=== PATIENT | female | born 2005 | race Caucasian/White ===

== ENCOUNTER 2025-01-15 18:33 | Emergency (ER) | payer BC ==
[~2025-01-15] VITALS: Ht 175.3 cm; Wt 77.1 kg
[2025-01-15 19:15] LABS: BASOPHILS # (AUTO) 0.1 K/UL (0.0-0.2); BASOPHILS % (AUTO) 1.4 % (0.0-2.0); EOSINOPHILS # (AUTO) 0.6 K/uL (0.0-0.7); EOSINOPHILS % (AUTO) 6.9 % (0.0-7.0); HEMATOCRIT 43.3 % (31.2-41.9); HEMOGLOBIN 14.6 g/dL (10.9-14.3); LYMPHOCYTES # (AUTO) 3.1 K/uL (0.8-4.8); LYMPHOCYTES % (AUTO) 35.7 % (20.5-74.5); MEAN CORPUSCULAR HEMOGLOBIN 30.5 uug (24.7-32.8); MEAN CORPUSCULAR HGB CONC 34 g/dL (32.3-35.6); MONOCYTES # (AUTO) 0.6 K/uL (0.1-1.30); MONOCYTES % (AUTO) 7.1 % (0-11); NEUTROPHILS # (AUTO) 4.3 K/uL (1.8-8.9); NEUTROPHILS % (AUTO) 48.9 % (31.5-64.5); PLATELET COUNT (AUTO) 168 K/uL (179-408); RED BLOOD CELL COUNT(AUTO) 4.81 MIL/uL (3.63-4.92); RED CELL DISTRIBUTION WIDTH 12.9 % (12.3-17.7); WHITE BLOOD COUNT (AUTO) 8.7 K/uL (3.8-11.8)
[2025-01-15 19:17] LABS: DIFFERENTIAL COMMENT 1
[2025-01-15 19:19] LABS: CARBON DIOXIDE 25 mmol/L (21-32); CHLORIDE 104 mmol/L (98-107); CREATININE 0.9 mg/dL (0.6-1.3); GLUCOSE 93 mg/dL (74-106); SODIUM SERUM 143 mmol/L (136-145); UREA NITROGEN, BLOOD 16 mg/dL (7-18)
[2025-01-15 19:19] LABS: *BILIRUBIN,URIN NEGATIVE (NEGATIVE); *BLOOD, URINE NEGATIVE (NEGATIVE); *CLARITY,URINE CLEAR (CLEAR); *COLOR,URINE YELLOW (YELLOW); *KETONES,URINE NEGATIVE (NEGATIVE); *PROTEIN,URINE NEGATIVE (NEGATIVE); *UROBILINOGEN,URINE 0.2 E.U./dl (NORMAL); LEUKOCYTE ESTERASE ,URINE 1+ (NEGATIVE); NITRITE, URINE NEGATIVE (NEGATIVE); PH,URINE 6.5 (5.0-8.0); UGLUCOSE NEGATIVE (NEGATIVE)
[2025-01-15 19:22] LABS: *URINE HCG, QUAL NEGATIVE (NEGATIVE)
[2025-01-15 19:24] LABS: BACTERIA,URINE MODERATE /HPF (NONE SEEN); RBC,URINE 0-3 /HPF (0-3)
[2025-01-15 19:25] LABS: ALANINE AMINOTRANSFERASE 27 U/L (14-59); ALBUMIN 4.2 g/dL (3.4-5.0); ALKALINE PHOSPHATASE 49 U/L (50-136); ASPARTATE AMINOTRANSFERASE 20 U/L (15-37); BILIRUBIN,DIRECT < 0.1 mg/dL (0.0-0.2); BILIRUBIN,TOTAL 0.3 mg/dL (0.2-1.0); TOTAL PROTEIN, SERUM 8.2 g/dL (6.4-8.2)
[2025-01-15 19:25] LABS: SQUAMOUS EPITHELIAL CELL,UR MODERATE /HPF (NONE SEEN)
[2025-01-15] MEDS ORDERED: SULF1TAB48 PO (20:06)
[2025-01-15] MEDS ORDERED: FAMO-132 PO (20:06)
[2025-01-15] MEDS ORDERED: FAMOTIDINE 20 MG TABLET ONE ×2 (20:09→20:11)
[2025-01-15] MEDS ORDERED: METOCLOPRAMIDE HCL 10 MG TABLET ONE (20:10)
[2025-01-15] MEDS ORDERED: SIMETHICONE 80 MG TAB.CHEW ONE (20:10)
[2025-01-15] MEDS: FAMOTIDINE 20 MG TABLET PO ONE (20:12)
[2025-01-15] MEDS: SIMETHICONE 80 MG TAB.CHEW PO ONE (20:12)
[2025-01-15] MEDS: SULFAMETH/TRIMETH 800/160 MG TABLET PO ONE (20:12)
[2025-01-15] MEDS: METOCLOPRAMIDE HCL 10 MG TABLET PO ONE (20:12)
[2025-01-15 20:14] VITALS: BP 124/69; TEMP 98; O2SAT 99
== END 2025-01-15 20:25 | disposition home or self-care (01) ==
LOC: ER 19:02
DX: N39.0 Urinary tract infection, site not specified (principal); K29.70 Gastritis, unspecified, without bleeding; R10.11 Right upper quadrant pain; R11.0 Nausea; Z88.7 Allergy status to serum and vaccine
CPT/HCPCS: 36415; 83690; 84703; 85025; 87086; A4606; A4663; J8597